=== PATIENT | male | born 1995 | race Caucasian/White ===

== ENCOUNTER 2017-02-12 11:56 | Outpatient (CLI) | payer BC ==
--- NOTE | 2017-02-12 15:07 | EKG ---
Test Reason : SYNCOPE Blood Pressure : / mmHG Vent. Rate : 066 BPM Atrial Rate : 066 BPM P-R Int : 120 ms QRS Dur : 098 ms QT Int : 380 ms P-R-T Axes : 027 047 023 degrees QTc Int : 398 ms Normal sinus rhythm with sinus arrhythmia Normal ECG No previous ECGs available Confirmed by GLORIA PUGH ([id number]) on 02/12/2017 3:07:07 PM Referred By: AMELIA Confirmed By:GLORIA PUGH
== END 2017-02-12 11:57 | disposition home or self-care (01) ==
LOC: EKG 11:56
PROVIDERS: ATTEND Family Medicine
DX: R55 Syncope and collapse (principal)
CPT/HCPCS: 93005; 93010; 93225; 93226

== ENCOUNTER 2017-04-04 13:55 | Outpatient (CLI) | payer BC | END 2017-04-04 13:56 | disposition home or self-care (01) | LOC: CTENTCT 13:55 | PROVIDERS: ATTEND Otolaryngology Plastic Surgery within the Head & Neck | DX: J34.2 Deviated nasal septum (principal) | CPT/HCPCS: 70486 ==